=== PATIENT | female | born 1930 | race African-American/Black ===

== ENCOUNTER 2017-09-23 13:28 | Inpatient (IN) | payer OTHER ==
[~2017-09-23] VITALS: Ht 162.6 cm; Wt 55.1 kg
[2017-09-23] VITALS (24 sets, daily range): BP systolic 62–174; BP diastolic 38–113
--- NOTE | ~2017-09-23 | HC ---
[facility] [place] [address] CONSULTATION Name: EBONY PEREIRA V Room #: 429-P ADM IN .R.#: [id number] Admission: 09/23/17 Attend Phys: Daniel Lynch MD Discharge: Date of : 31 Report #: [id number] THIS REPORT FOR: //name// CC: Marlon Lynch DATE OF SERVICE: 09/25/2017 HISTORY OF PRESENT ILLNESS: This is an 86-year-old female patient who was evaluated by me for post-cardiac arrest. I saw the patient yesterday as well as today. I talked to the nurses both days, but I am not able to reach any family. History indicates that this patient has advanced dementia, and she was on the hospice that was revoked, and she had bradycardia, and she was coded. She continued to be unresponsive, but becomes angry and tried to hit at other people according to the nurses. On my examination yesterday as well as today, she did not do anything. REVIEW OF SYSTEMS: She has been seen by multiple physicians. She is on multiple psychotropic medications. Record indicated that she has a history of cardiomyopathy. From the record, she does have bradycardia. She probably had some cardiac arrest. There are some records to indicate that the patient is trying to get some insurance for the proper burial. I will talk to the hospitalist about that. That is the main 14-point review of system I can get in this patient. The patient has become more responsive after her bradycardia is better. This all the 14-point review of systems I can get. PAST MEDICAL HISTORY: Positive for what looks like advanced dementia. FAMILY HISTORY: Unavailable. SOCIAL HISTORY: She lives in a skilled nursing. PHYSICAL EXAMINATION: Has been very limited. She will not cooperate with examination. She does not say anything, but she becomes impulsive and responsive according to the nurses. She is moderately built individual who does not have any dysmorphic features of eyes, ears and face. Temperature is 97.5, pulse is 70, blood pressure is 122/75. She seems to be breathing reasonably well. Cardiac examination as per Cardiology. Her sodium is 144. She did have a CT scan of the head, which showed volume loss and old CVA and sclerotic lesions. IMPRESSION: Advanced dementia with some encephalopathy. She is having multiple problems. I will talk to you and I do not think a neurologically much testing or the workup can be done in this patient. She should be watched for seizures [facility] [address] [place] [address] CONSULTATION Name: EBONY PEREIRA V Room #: 429-P [facility] IN ..#: [id number] Admission: 09/23/17 Attend Phys: Daniel Lynch MD Discharge: Date of : 31 Report #: [id number] and if any seizure is noticed, then we can give her antiseizure medications. Otherwise, I believe comfort care should be the way to go in this patient. I will try to continue to reach the family and once they are available, we will talk to them. By: [id number] Kenny Buckley MD /marko
--- NOTE | ~2017-09-23 | HC ---
[facility] [place] [address] CONSULTATION Name: KARLA PEREIRAE Denny Room #: 429-P [facility] IN M.R.#: [id number] Admission: 09/23/17 Attend Phys: Daniel Lynch MD Discharge: Date of : 31 Report #: [id number] THIS REPORT FOR: //name// CC: Marlon yLnch DATE OF SERVICE: 09/23/2017 PULMONARY CONSULTATION REFERRAL PHYSICIAN: Dr. Stokes. REASON FOR REFERRAL: Cardiac arrest. HISTORY OF PRESENT ILLNESS: The patient is an 86-year-old female, who is a retirement patient, brought to the Emergency Room after being found unresponsive. A pulmonary consultation was requested. The patient resides in a retirement at [facility]. She was in her usual state of health until the day of presentation, she was found to be unresponsive. 911 was called. She was given CPR. I do not know the initial rhythm, but when the CPR was given, she was found to be bradycardic with a heart rate of 30 and hypotensive with a blood pressure around 60. She was stabilized and transferred to the Emergency Room. According to the records, which is limited, she was on hospice care and was a DNR. Further medical records are pending. The family is present. They are familiar with only few other medical history. She has been treated for long history of dementia, hypertension, heart failure, valvular cardiomyopathy, COPD. Presently, she is arousable, some movement in the extremities, not spontaneously. She does not verbalize. Family members are present. She is still bradycardic with heart rate in the 50s. Blood pressure is borderline hypotensive. PAST MEDICAL HISTORY: Is incomplete as mentioned above. PAST SURGICAL HISTORY: Unknown. ALLERGIES: Unknown. CURRENT MEDICATIONS: Reviewed from the retirement. This includes Norvasc, Celexa, donepezil, hydrochlorothiazide, Zestril, Toprol-XL, potassium supplements, Xanax, Lasix, Haldol, Desyrel, Risperdal. [facility] [address] [place] [address] CONSULTATION Name: EBONY PEREIRA Denny Room #: 429-P [facility] IN .R.#: [id number] Admission: 09/23/17 Attend Phys: Daniel Lynch MD Discharge: Date of : 31 Report #: [id number] FAMILY HISTORY: Unknown. SOCIAL HISTORY: No prior history of tobacco or alcohol use. REVIEW OF SYSTEMS: As mentioned above. It is unobtainable. It should be noted the patient appears to have visual impairment. PHYSICAL EXAMINATION: GENERAL: She is spontaneously arousable, does not open eyes, moving extremities bilaterally, appears weak. She appears malnourished. VITAL SIGNS: Temperature is 96 degrees Fahrenheit, pulse is in the 50s, blood pressure currently is ____ mmHg, has been as low as 59 mmHg systolic, saturation 100%. HEENT: Normocephalic, atraumatic. Eyelids are closed. NECK: Supple, without any lymphadenopathy or thyromegaly. CHEST: Breath sounds are fair due to poor effort, otherwise no obvious rales or wheezes. CARDIOVASCULAR: Bradycardic. No obvious murmurs or gallop. Pulses are 2+/4+ bilaterally. BREASTS: Exam deferred. ABDOMEN: Soft, nontender, no organomegaly or masses felt. GENITOURINARY: Deferred. RECTAL: Deferred. EXTREMITIES: No edema, cyanosis, clubbing. NEUROLOGIC: Again, she is arousable, moving some of the extremities, appears weak, does not open eyes. LABORATORY DATA: Chest x-ray shows mild cardiomegaly, otherwise clear lung tse. CT head shows no acute intracranial process, age-related findings are noted with volume loss involving the cerebellar area, chronic central white matter ischemia, old frontal parietal CVA. Electrolytes are normal except for creatinine of 1.5, BUN is 37. Liver enzymes are mildly abnormal. WBC 7500, hemoglobin 12.0, platelets are normal without evidence of bandemia. Arterial blood gas revealed pH 7.33, pCO2 of 58, pO2 of 539. IMPRESSION: 1. Out of hospital cardiac arrest, now bradycardic, hypotensive, suspect sick sinus syndrome. 2. Acute hypoxic respiratory failure due to above. She appears to have acute on chronic hypercapnic respiratory acidosis, likely related to underlying hypoventilation related to advanced age and dementia. She has a history of chronic obstructive pulmonary disease . 3. Chronic obstructive pulmonary disease. 4. Renal insufficiency, unclear if this is acute or chronic. 5. Old cerebrovascular accident by CT head. [facility] [address] [place] [address] CONSULTATION Name: EBONY PEREIRA V Room #: 429-P ADM IN M.R.#: [id number] Admission: 09/23/17 Attend Phys: Daniel Lynch MD Discharge: Date of : 31 Report #: [id number] 6. History of hypertension. 7. History of valvular heart disease, awaiting echocardiogram. 8. Long history of dementia. RECOMMENDATION: We will continue O2 to keep saturation 90%. Bronchodilators will be initiated. No obvious evidence of exacerbation of chronic obstructive pulmonary disease at this time. Doubt pulmonary embolus as a cause for cardiac arrest. DVT and GI prophylaxis recommended. Overall, prognosis remains poor given general condition along with progressive dementia. This was discussed in detail with the patient's family. Thank you for this consultation. <ELECTRONICALLY SIGNED> By: Gilmar Mancilla MD 09/27/17 1310 1248 2330 Gilmar Mancilla MD /nt
--- NOTE | ~2017-09-23 | EKG ---
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 : 1930 Requested By: Veronica Stokes Order Number: [id number] MD: Kirit Rincon Measurements Intervals [place] Rate: 86 P: AR: QRS: 64 QRSD: 115 T: 24 QT: 454 QTc: 543 Interpretive Statements Atrial fibrillation Ventricular premature complex Probable left ventricular hypertrophy with QRS widening Prolonged QT interval No previous ECG available for comparison Electronically Signed On 09-24-2017 12:50:12 CDT by Kirit Rincon [email or web address] <ELECTRONICALLY SIGNED> By: Kirit Rincon MD, [facility] 09/24/17 1250 1332 31 Kirit Rincon MD, FACC /EPI
--- NOTE | ~2017-09-23 | 2DMMODE ---
[facility] [address] [place] [address] 2 D/M-MODE ECHOCARDIOGRAM Name: KELLIEBONY Room #: 239-P ADM IN .R.#: [id number] Admission: 09/23/17 Attend Phys: Daniel Lynch MD Discharge: Date of : 31 Date of Service: 09/24/17 1015 Report #: [id number] THIS REPORT FOR: //name// APPROVED REPORT Study performed: 09/24/2017 08:16:56 EXAM: Comprehensive 2D, Doppler, and color-flow Echocardiogram Patient Location: ICU Room #: 239 Status: routine BSA: 1.39 HR: 73 bpm BP: 120/98 mmHg Other Information Study Quality: Good Indications Arrhythmia Bradycardia Hypertension/HDD Cardiac Arrest 2D Dimensions RVDd: 34.00 mm LVEF(%): 33.98 (>50%) IVSd: 9.69 (7-11mm) LVOT Diam: 20.97 (18-24mm) LVDd: 42.87 mm PWd: 9.66 (7-11mm) Ascending Ao: 26.60 (22-36mm) LVDs: 36.01 (25-40mm) Aortic Root: 31.41 mm IVC: 21.00 mm Sandhu's LVEF: 33.98 % Volumes Left Atrial Volume (Systole) Single Plane 4CH: 80.35 mL Single Plane 2CH: 50.34 mL LA ESV Index: 49.00 mL/m2 Aortic Valve AoV Peak Gabe.: 1.04 m/s AO Peak Gr.: 4.34 mmHg LVOT Max P.59 mmHg LVOT Max V: 0.63 m/s JIMENA Vmax: 2.09 cm2 AI Vmax: 4.06 m/s [facility] [employer] [place] [address] 2 D/M-MODE ECHOCARDIOGRAM Name: EBONY PEREIRA Room #: [address] [place] [address] IN ..#: [id number] Admission: 09/23/17 Attend Phys: Daniel Lynch MD Discharge: Date of : 31 Date of Service: 09/24/17 1015 Report #: [id number] [place]: 2.02 m/s2 AI PHT: 583.23 ms Mitral Valve E/A Ratio: 0.4 MV Decel. Time: 143.38 ms MV E Max Gabe.: 0.41 m/s MV A Gabe.: 0.96 m/s MV PHT: 41.58 ms IVRT: 175.32 ms Pulmonary Valve PV Peak Gabe.: 0.58 m/s PV Peak Gr.: 1.34 mmHg Pulmonary Vein P Vein S: 0.33 m/s P Vein A: 0.26 m/s P Vein D: 0.24 m/s P Vein A Dur.: 96.9 msec P Vein S/D Ratio: 1.38 Tricuspid Valve TR Peak Gabe.: 3.14 m/s TR Peak Gr.: 39.38 mmHg PA Pressure: 54.00 mmHg Left Ventricle The left ventricle is normal size. There is global hypokinesis of the left ventricle. There is normal left ventricular wall thickness. Left ventricular ejection fraction is mild to moderately decreased. LVEF is 35-40%. Grade I - abnormal relaxation pattern. Right Ventricle The right ventricle is normal size. The right ventricular systolic function is normal. Atria Left atrium is dilated. Right atrium is at the upper limits of normal. Aortic Valve The aortic valve is normal in structure. Mild aortic regurgitation. There is no aortic valvular stenosis. Mitral Valve The mitral valve is normal in structure. Mild mitral regurgitation. No evidence of mitral valve stenosis. [address] [address] 2 D/M-MODE ECHOCARDIOGRAM Name: EBONY PEREIRA Room #: 239-P [facility] IN ..#: [id number] Admission: 09/23/17 Attend Phys: Daniel Lynch MD Discharge: Date of : 31 Date of Service: 09/24/17 1015 Report #: [id number] Tricuspid Valve The tricuspid valve is normal in structure. There is mild to moderate tricuspid regurgitation. Estimated PAP 54 mmHg. There is moderate pulmonary hypertension. Pulmonic Valve The pulmonary valve is normal in structure. Mild pulmonic regurgitation. Great Vessels The aortic root is normal in size. The inferior vena cava is dilated with no inspiratory collapse. Pericardium There is no pericardial effusion. <Conclusion> The left ventricle is normal size. Left ventricular ejection fraction is mild to moderately decreased. LVEF is 35-40%. Grade I - abnormal relaxation pattern. Left atrium is dilated. Right atrium is at the upper limits of normal. Mild aortic regurgitation. There is no aortic valvular stenosis. Mild mitral regurgitation. There is mild to moderate tricuspid regurgitation. Estimated PAP 54 mmHg. There is moderate pulmonary hypertension. The aortic root is normal in size. There is no pericardial effusion. <ELECTRONICALLY SIGNED> By: José Miguel Bonner MD, FACC 09/24/17 1015 1015 1015 José Miguel Bonner MD, FACC /INF
--- NOTE | ~2017-09-23 | EKG ---
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: CHIQUIS : 1930 Requested By: José Miguel Bonner Order Number: [id number] MD: Kirit Rincon Measurements Intervals [place] Rate: 74 P: 71 NV: 229 QRS: 65 QRSD: 83 T: 68 QT: 408 QTc: 453 Interpretive Statements Sinus rhythm Left atrial enlargement Probable left ventricular hypertrophy Anterior Q waves, possibly due to LVH No previous ECG available for comparison Electronically Signed On 09-24-2017 16:30:53 CDT by Kirit Rincon [email or web address] <ELECTRONICALLY SIGNED> By: Kirit Rincon MD, [facility] 09/24/17 1630 0733 2 Kirit Rincon MD, FACC /EPI
--- NOTE | ~2017-09-23 | EEG ---
[facility] [place] [address] ELECTROENCEPHALOGRAM Name: EBONY PEREIRA V Room #: 429-P [facility] IN M.R.#: [id number] Admission: 09/23/17 Attend Phys: Daniel Lynch MD Discharge: Date of : 31 Report #: [id number] THIS REPORT FOR: //name// CC: Marlon Kori Daniel Lynch DATE OF SERVICE: 09/24/2017 This patient is being evaluated as a post-cardiac arrest. EEG was done by placing the electrodes by standard 10-20 system of electrode placement. Both referential and sequential montages were used for recording. Background activity in this patient is about 6-7 Hz and 30-40 microvolt. This is a very poorly formed background activity. It is intermixed with theta range slowing on both sides. Some sharper activity appeared to be present, but is difficult to separate from artifact. Photic stimulation is unremarkable. IMPRESSION: Severely abnormal EEG, which will be consistent with encephalopathy versus severe dementia. Finding is nonspecific and therefore, clinical correlation is recommended. Some sharper activity is noticed but that is difficult to separate from artifact. Thank you very much for this referral. By: 0935 1147 Kenny Buckley MD /nt
--- NOTE | ~2017-09-23 | HC ---
[facility] [place] [address] CONSULTATION Name: EBONY PEREIRA Room #: 239-P ADM IN M.R.#: [id number] Admission: 09/23/17 Attend Phys: Daniel Lynch MD Discharge: Date of : 31 Report #: [id number] THIS REPORT FOR: //name// CC: Marlon Lynch DATE OF SERVICE: 09/23/2017 CARDIOLOGY CONSULTATION HISTORY OF PRESENT ILLNESS: The patient is an 86-year-old female who apparently was under hospice care at a [facility]. She was found to be unresponsive and despite medical records saying DNR, was CPR and resuscitated with understanding some limited defibrillations. She was brought back with a pulse into [facility] where apparently the DPOA who is her son reversed the DNR. A CT scan of the head was unremarkable. She has had periods of bradycardia responsive to atropine twice and now is on low dose Levophed. ____ and appears to be hemodynamically stable. We really have limited records here. There is no history of any infarct. Apparently, does have a history of cardiomyopathy, cardiomegaly and heart failure, predominantly since her care in the past has been at [facility]. MEDICATIONS: The reported medications from the facility were Norvasc, Celexa, Zestril, hydrochlorothiazide, metoprolol 25, Xanax, Lasix 20, Haldol, trazodone at night, and risperidone. SOCIAL HISTORY: She is . Apparently, there is at least 4 children involved. She is fairly profoundly demented at baseline according to the records. There is no current alcohol or tobacco use. FAMILY HISTORY: Not obtainable. LABORATORY WORK: Had some borderline low potassium and magnesium, these have been replaced. H and H was 12 and 37. Troponin is negative. Liver function tests are essentially unremarkable. Creatinine is 1.5. PHYSICAL EXAMINATION: GENERAL: Her eyes are awake. She does not really respond. ____. HEENT: Eyes reveal no xanthelasmas or arcus senilis. Pharynx is slightly dry mucous membranes. NECK: Preserved upstrokes without JVD. LUNGS: Prolonged expiratory phase. CARDIAC EXAMINATION: Regular rate and rhythm, S1, S2. Systolic murmur is noted in the upper sternal border. ABDOMEN: Soft. No HSM or abdominal bruit. EXTREMITIES: Reveal trace nonpitting edema. Distal pulses diminished, but [facility] [address] [place] [address] CONSULTATION Name: EBONY PEREIRA Room #: [facility] IN [facility].#: [id number] Admission: 09/23/17 Attend Phys: Daniel Lynch MD Discharge: Date of : 31 Report #: [id number]. NEUROLOGIC: She seems to be moving everything, but not necessarily purposefully. No flaccidity is noted. She does not really respond, but she appears to be awake. ASSESSMENT: 1. Unresponsiveness of questionable cardiac/respiratory arrest. 2. History of cardiomegaly, cardiomyopathy with heart failure, awaiting further records. 3. Hypertension. 4. Hypercholesterolemia. 5. Depression, anxiety. 6. Degenerative joint disease. 7. Progressive dementia. RECOMMENDATIONS AND PLAN: Currently, low dose Levophed. Does not appear to be evidence of underlying sepsis or with the inciting event was here, possibly respiratory. We will evaluate with echo and EKG in the morning, atropine could be used p.r.n., although her pulse is currently 60s with low-dose pressor support. I suspect further discussion with the family, DPOA, I think there would certainly be some ethics involved here, potentially some ethical issues involved here and further recommendations after obtaining the echo and see how the rhythm goes overnight. I think permanent pacemaker. No clear indication for this, but if she continue to have recurrent bradycardia or heart block, I have not seen evidence currently. When that could be the consideration, although again I think there will be some ethical considerations. We will follow with you. By: 2309 0542 José Miguel Bonner MD, FACC /nt
--- NOTE | ~2017-09-23 | EKG ---
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
[2017-09-23 14:49] LABS: ABSOLUTE NEUTROPHILS 5.6 thou/uL (1.4-8.2); BASOPHILS 0.6 % (0.0-2.0); EOSINOPHILS 1.1 % (0.0-3.0); LYMPHOCYTES 15.6 % (24.0-44.0); MCH 27.5 pg (26.0-34.0); MCHC 32.4 g/dL (28.0-37.0); MONOCYTES 8.4 % (1.0-8.0); PLATELET COUNT 125 thou/uL (150-400); POLYS 74.3 % (36.0-66.0); RBC 4.35 mil/uL (4.20-5.00); RDW 16.2 % (10.5-14.5); WBC 7.5 thou/uL (4.0-11.0)
[2017-09-23 14:55] LABS: ANION GAP 5 mmol/L (7-16); BUN 37 mg/dL (7-18); CHLORIDE 107 mmol/L (98-107); CO2 32 mmol/L (21-32); CREATININE 1.5 mg/dL (0.6-1.0); GLUCOSE 124 mg/dL (74-106); POTASSIUM 3.5 mmol/L (3.5-5.1); SODIUM 144 mmol/L (136-145)
[2017-09-23 15:03] LABS: ALBUMIN 3.3 g/dL (3.4-5.0); SGOT 22 U/L (15-37); SGPT 42 U/L (30-65); TOTAL BILIRUBIN 0.4 mg/dL (<0.1-1.0); TOTAL PROTEIN 7.1 g/dL (6.4-8.2); TROPONIN-I < 0.04 ng/mL (<0.06)
[2017-09-23 15:48] LABS: BE(vivo) 2.8 mmol/L (-2 to +3); PO2 539.6 mmHg (80.0-100.0); pH 7.331 (7.360-7.450); sO2 99.9 % (92.0-98.0)
[2017-09-23] MEDS ORDERED: CELEXA10 MG PO (16:19)
[2017-09-23] MEDS ORDERED: NORVASC5 MG PO (16:19)
[2017-09-23] MEDS ORDERED: LASIX 20 MG TAB20 MG PO (16:20)
[2017-09-23] MEDS ORDERED: KLOR-CON 1010 MEQ PO (16:20)
[2017-09-23] MEDS ORDERED: DONEPEZIL HCL 55 M1 PO (16:20)
[2017-09-23] MEDS ORDERED: HYDROCHLOROTHIA25 M2 PO (16:20)
[2017-09-23] MEDS ORDERED: TOPROL XL25 MG PO (16:20)
[2017-09-23] MEDS ORDERED: LISINOPRIL10 MG PO (16:20)
[2017-09-23] MEDS ORDERED: XANAX 0.25 MG0.25 MG PO (16:20)
[2017-09-23] MEDS ORDERED: TRAZODONE HCL50 MG PO (16:21)
[2017-09-23] MEDS ORDERED: HALOPERIDOL 1 MG1 MG PO (16:21)
[2017-09-23] MEDS ORDERED: RISPERDAL37.5 MG/2 IM (16:21)
[2017-09-23 17:46] LABS: CALCIUM 9.8 mg/dL (8.5-10.1); CREATININE 1.4 mg/dL (0.6-1.0); MAGNESIUM 1.7 mg/dL (1.8-2.4); POTASSIUM 3.4 mmol/L (3.5-5.1)
[2017-09-23 17:47] LABS: URINE BILIRUBIN NEGATIVE (Negative); URINE BLOOD NEGATIVE (Negative); URINE CLARITY CLEAR; URINE COLOR YELLOW; URINE GLUCOSE-RANDOM* NEGATIVE (Negative); URINE KETONES NEGATIVE (Negative); URINE LEUKOCYTES-REFLEX NEGATIVE (Negative); URINE NITRITE-REFLEX NEGATIVE (Negative); URINE PROTEIN (DIPSTICK) NEGATIVE (Negative); URINE UROBILINOGEN 0.2 E.U./dl (0.2-1.0)
[2017-09-24] VITALS (30 sets, daily range): BP systolic 82–153; BP diastolic 39–98
[2017-09-24 05:51] LABS: HEMATOCRIT 33.9 % (37.0-47.0); MCH 27.5 pg (26.0-34.0); MCHC 32.4 g/dL (28.0-37.0); MCV 84.8 fL (80.0-100.0); WBC 5.2 thou/uL (4.0-11.0)
[2017-09-24 06:04] LABS: CALCIUM 9.3 mg/dL (8.5-10.1); CREATININE 1.2 mg/dL (0.6-1.0); POTASSIUM 3.4 mmol/L (3.5-5.1)
[2017-09-25] VITALS (8 sets, daily range): BP systolic 117–148; BP diastolic 61–105
[2017-09-25 05:41] LABS: HEMATOCRIT 33.1 % (37.0-47.0); HEMOGLOBIN 10.9 gm/dL (12.0-15.0); MCHC 33.1 g/dL (28.0-37.0); MCV 84.6 fL (80.0-100.0); RBC 3.91 mil/uL (4.20-5.00)
[2017-09-25 06:00] LABS: ALBUMIN 2.8 g/dL (3.4-5.0); CALCIUM 8.9 mg/dL (8.5-10.1); CREATININE 1.2 mg/dL (0.6-1.0); MAGNESIUM 1.9 mg/dL (1.8-2.4); POTASSIUM 4.2 mmol/L (3.5-5.1); TOTAL BILIRUBIN 0.4 mg/dL (<0.1-1.0); TOTAL PROTEIN 6.3 g/dL (6.4-8.2)
[2017-09-26 03:50] VITALS: BP 164/65
[2017-09-26 04:03] LABS: HEMATOCRIT 34.3 % (37.0-47.0); HEMOGLOBIN 11.2 gm/dL (12.0-15.0); MCH 27.5 pg (26.0-34.0); MCHC 32.7 g/dL (28.0-37.0); MCV 84.4 fL (80.0-100.0); RBC 4.07 mil/uL (4.20-5.00); RDW 16.3 % (10.5-14.5); WBC 5.5 thou/uL (4.0-11.0)
[2017-09-26 04:16] LABS: ALBUMIN 2.8 g/dL (3.4-5.0); CREATININE 1.3 mg/dL (0.6-1.0); PHOSPHORUS 2.8 mg/dL (2.5-4.9); POTASSIUM 3.4 mmol/L (3.5-5.1)
[2017-09-26 05:16] VITALS: BP 181/83
[2017-09-26 07:10] VITALS: BP 176/75
[2017-09-26 20:00] VITALS: BP 136/82
[2017-09-27 04:55] VITALS: BP 175/94
[2017-09-27 05:53] LABS: ALBUMIN 3.2 g/dL (3.4-5.0); CALCIUM 9.6 mg/dL (8.5-10.1); CREATININE 1.2 mg/dL (0.6-1.0); PHOSPHORUS 2.7 mg/dL (2.5-4.9); POTASSIUM 3.4 mmol/L (3.5-5.1)
[2017-09-27 07:51] VITALS: BP 166/64
[2017-09-27] MEDS ORDERED: AUGMENTIN 400-1 EACH PO (09:43)
[2017-09-27] MEDS ORDERED: NEOMYCIN/BACIT3.5 G1 OPHTHALMIC (09:51)
== END 2017-09-27 15:23 | DRG 177 ==
LOC: ER 13:28 → EROBS 15:37 → ICU 15:37 → 4E 09-25 10:08
PROVIDERS: Emergency Medicine; Hospitalist; Internal Medicine Pulmonary Disease
PROC: 05HB33Z Insertion of Infusion Device into Right Basilic Vein, Percutaneous Approach (ICD-10-PCS; principal; 2017-09-23)
PROC: 05HY33Z Insertion of Infusion Device into Upper Vein, Percutaneous Approach (ICD-10-PCS; 2017-09-24)
DX: J69.0 Pneumonitis due to inhalation of food and vomit (principal); I46.9 Cardiac arrest, cause unspecified; J96.21 Acute and chronic respiratory failure with hypoxia; J96.22 Acute and chronic respiratory failure with hypercapnia; G93.40 Encephalopathy, unspecified; I42.9 Cardiomyopathy, unspecified; E87.0 Hyperosmolality and hypernatremia; J44.9 Chronic obstructive pulmonary disease, unspecified; I49.5 Sick sinus syndrome; H10.9 Unspecified conjunctivitis; N28.9 Disorder of kidney and ureter, unspecified; I95.9 Hypotension, unspecified; Z66 Do not resuscitate; I11.0 Hypertensive heart disease with heart failure; E78.00 Pure hypercholesterolemia, unspecified; E87.6 Hypokalemia; E83.42 Hypomagnesemia; F32.9 Major depressive disorder, single episode, unspecified; F41.9 Anxiety disorder, unspecified; M19.90 Unspecified osteoarthritis, unspecified site; F03.90 Unspecified dementia, unspecified severity, without behavioral disturbance, psychotic disturbance, mood disturbance, and anxiety; Z86.73 Personal history of transient ischemic attack (TIA), and cerebral infarction without residual deficits; Z79.899 Other long term (current) drug therapy
CPT/HCPCS: 10078; 10183; 27001